=== PATIENT | male | born 1980 | race African-American/Black ===

== ENCOUNTER 2019-10-22 10:24 | Emergency (ER) | payer OTHER, SELFPAY ==
[2019-10-22 10:20] VITALS: BP 127/73; PULSE 71; RESP 16; O2SAT 100
--- NOTE | 2019-10-22 10:20 | ED.SEIZURE ---
HPI - Seizure General Chief Complaint: Seizure Stated Complaint: SEIZURE Time Seen by Provider: 10/22/19 10:50 Source: patient and family Mode of arrival: EMS Limitations: no limitations History of Present Illness HPI Narrative: A 39 y/o male presents to the ED with c/o seizure. He has a PMHx of seizures and epilepsy since he was 1 y/o. Pt takes Tegretol 400mg BID and Topamax 200mg BID. He has tonic clonic seizures occasionally as well. Pt adds that he had a very stressful day today and high stress can bring on his seizures. He is currently seeking options to have brain surgery to alleviate his epilepsy. Pt does not note any current pain or symptoms in the ED. According to family he is back at his baseline. He has no other complaints at this time. Review of Systems Review of Systems: All systems reviewed & are unremarkable except as noted in HPI and below Cardiovascular: Cardiovascular: Denies chest pain Gastrointestinal: Gastrointestinal: Denies abdominal pain Musculoskeletal: Musculoskeletal: Denies back pain, Denies myalgias, Denies arthralgias and Denies neck pain Neurologic: Reports seizure-like activity [facility] Past Medical History Medical History (Updated 10/22/19 @ 13:08 by Glenroy Posadas MD) Asthma Epilepsy HTN (hypertension) Seizure Surgical History Surgical History (Updated 10/22/19 @ 10:59 by Irma Olvera) History of brain surgery Unknown type Social History Social History Smoking packs per day: 0.5 Smoking cigarettes per day: 10.0 Smoking status: Current some day smoker Gender identity (if verbalized by the patient): Male Exam Const: General: healthy appearing, no acute distress, well developed and alert Orientation/consciousness: patient oriented x3 Limitations: no limitations HENMT: Head: normocephalic and atraumatic Ears: external ears normal and TM's normal bilaterally Mouth: Yes oropharynx normal and Yes moist mucous membranes Other: scar to right frontoparietal region from previous surgery. Resp: Effort & Inspection: normal respiratory effort and able to speak in complete sentences Auscultation: clear to auscultation bilaterally Cardio: Rate: regular rate Rhythm: regular rhythm Peripheral pulses: radial pulses present and popliteal pulses present Skin: General skin exam: normal color and no rashes or lesions noted Neuro: General: patient oriented x3 Speech: normal speech Extrem: General: normal to inspection and no clubbing, cyanosis or edema Course Course Emergency Course: Patient resting comfortably. I have witnessed him take his home medications. He has been observed for over an hour since taking his home meds. No additional seizures. No vomiting. Discharge home. Vital Signs Vital signs: Vital Signs Pulse Rate 71 10/22/19 10:20 Respiratory Rate 16 10/22/19 10:20 Blood Pressure 127/73 10/22/19 10:20 Pulse Oximetry 100 10/22/19 10:20 Pulse Rate 60 10/22/19 11:44 Respiratory Rate 18 10/22/19 11:44 Blood Pressure 132/80 10/22/19 11:44 Pulse Oximetry 98 10/22/19 11:44 MDM - Seizure Lab Data Result diagrams: 10/22/19 10:41 10/22/19 11:16 Labs: Lab Results 10/22/19 10/22/19 Range/Units 10:41 11:16 WBC 4.2 L (4.5-10.0) K/mm3 RBC 4.96 (4.6-6.20) M/mm3 Hgb 14.5 (14.0-18.0) g/dL Hct 45.5 (42.0-52.0) % MCV 91.7 (80-100) fl MCH 29.2 (26-34) pg MCHC 31.9 L (32-36) g/dl RDW 12.6 (11.5-14.5) % Plt Count 263 (150-375) k/mm3 MPV 9.8 (7.4-10.4) fl Immature Gran % (Auto) 0.5 (0-0.5) % Neut % (Auto) 56.9 (45.5-73.1) % Lymph % (Auto) 27.2 (18.3-44.2) % [place] % (Auto) 12.0 H (2.6-8.5) % Eos % (Auto) 2.4 (0-4.4) % Baso % (Auto) 1.0 (0.2-1.2) % Lymph # (Auto) 1.13 (0.9-3.2) K/mm3 [place] # (Auto) 0.5 (0.1-0.6) K/mm3 Eos # (Auto) 0.1 (0-0.3) K/mm3 Baso # (Auto) 0.0 (0.0-0.1) K/mm3
[2019-10-22 10:30] VITALS: PULSE 70; O2SAT 100
--- NOTE | 2019-10-22 10:30 | ECG_ITS ---
Measurements Intervals [place] Rate: 68 P: -3 [place]: 197 QRS: 65 QRSD: 107 T: 37 QT: 387 QTc: 412 Interpretive Statements SINUS RHYTHM MINIMAL Q WAVES- INFERIOR LEADS BASELINE ARTIFACT- II, III, AVF BORDERLINE ECG Electronically Signed On 10-22-2019 10:50:39 PATTERN ATTENDANT by Paolo Mcmullen D.O.
[2019-10-22 10:45] VITALS: BP 116/68; PULSE 60; RESP 18; O2SAT 100
[2019-10-22 10:54] LABS: Eosinophils Absolute Auto 0.1 K/mm3 (0-0.3); Eosinophils Percent Auto 2.4 % (0-4.4); Hematocrit 45.5 % (42.0-52.0); Hemoglobin 14.5 g/dL (14.0-18.0); Immature Granulocyte Absolute 0.02 K/mm3 (0.00-0.031); Immature Granulocyte Percent A 0.5 % (0-0.5); Lymphocytes Absolute Auto 1.13 K/mm3 (0.9-3.2); Lymphocytes Percent Auto 27.2 % (18.3-44.2); Mean Corpuscular HGB Conc 31.9 g/dl (32-36); Mean Corpuscular Hemoglobin 29.2 pg (26-34); Mean Corpuscular Volume 91.7 fl (80-100); Mean Platelet Volume 9.8 fl (7.4-10.4); Monocytes Absolute Auto 0.5 K/mm3 (0.1-0.6); Neutrophils Absolute Auto 2.4 K/mm3 (1.3-6.7); Neutrophils Percent Auto 56.9 % (45.5-73.1); Platelet Count Result 263 k/mm3 (150-375); Red Blood Count 4.96 M/mm3 (4.6-6.20); Red Cell Distribution Width 12.6 % (11.5-14.5); White Blood Count 4.2 K/mm3 (4.5-10.0)
[2019-10-22 11:37] LABS: Blood Urea Nitrogen 17 mg/dL (9-20); Calcium 8.8 mg/dL (8.4-10.2); Carbon Dioxide 18 mmol/L (22-30); Chloride 111 mmol/L (98-107); Estimated CRCL calculation 127 ml/min; Estimated Glomerular Filt Rate > 60; Glucose 90 mg/dL (75-110); Potassium 3.4 mmol/L (3.4-5.0); Sodium 144 mmol/L (137-145)
[2019-10-22 11:44] VITALS: BP 132/80; PULSE 60; RESP 18; O2SAT 98
[2019-10-22 13:12] VITALS: BP 120/72; PULSE 58; RESP 16; O2SAT 100
== END 2019-10-22 13:21 | disposition home or self-care (01) ==
PROVIDERS: Emergency Provider Emergency Medicine
DX: G40.909 Epilepsy, unspecified, not intractable, without status epilepticus (principal); I10 Essential (primary) hypertension; J45.909 Unspecified asthma, uncomplicated
CPT/HCPCS: 36415; 80048; 85025; 93005; 99284